=== PATIENT | female | born 1965 | race Caucasian/White ===

== ENCOUNTER 2017-07-01 08:00 | Day surgery (SDC) | payer BC ==
[2017-07-01] MEDS ORDERED: MIDAZOLAM 1 MG/ML 2 ML INJ ×2 (10:02)
[2017-07-01] MEDS ORDERED: FENTAnyl 50 MCG/ML VIAL (10:02)
== END 2017-07-01 11:18 | disposition home or self-care (01) ==
LOC: GIL 08:00
DX: Z12.11 Encounter for screening for malignant neoplasm of colon (principal); K64.4 Residual hemorrhoidal skin tags; E03.9 Hypothyroidism, unspecified
CPT/HCPCS: 45378; 84703